=== PATIENT | male | born 1945 | race African-American/Black ===

== ENCOUNTER 2017-10-10 15:18 | Emergency (ER) | payer OTHER ==
[~2017-10-10] VITALS: Ht 177.8 cm; Wt 95.3 kg
[2017-10-10 15:23] VITALS: BP 158/80
[2017-10-10] MEDS ORDERED: COZAAR 50 MG TA50 M2 PO (15:28)
[2017-10-10] MEDS ORDERED: LOPRESSOR25 PO (15:28)
[2017-10-10] MEDS ORDERED: CHLORTHALIDONE25 MG PO (15:28)
[2017-10-10] MEDS ORDERED: ASPIR 8181 MG PO (15:29)
[2017-10-10] MEDS ORDERED: POTASSIUM20 PO (15:29)
[2017-10-10] MEDS ORDERED: ZOCOR40 MG PO (15:29)
[2017-10-10] MEDS ORDERED: METFORMIN HCL500 MG PO (15:29)
[2017-10-10] MEDS ORDERED: CENTRUM SILVER1 EAC2 PO (15:29)
[2017-10-10] MEDS ORDERED: FISH OIL 1,001000 M2 PO (15:30)
[2017-10-10] MEDS ORDERED: VITAMINC500 PO (15:30)
== END 2017-10-10 16:51 | disposition home or self-care (01) ==
LOC: ER 15:18
DX: S61.217A Laceration without foreign body of left little finger without damage to nail, initial encounter (principal); I10 Essential (primary) hypertension; E11.9 Type 2 diabetes mellitus without complications; E78.00 Pure hypercholesterolemia, unspecified; W20.8XXA Other cause of strike by thrown, projected or falling object, initial encounter; Y93.89 Activity, other specified; Y92.89 Other specified places as the place of occurrence of the external cause; Y99.8 Other external cause status